=== PATIENT | male | born 1975 | race Two or more races ===

== ENCOUNTER → 2016-09-06 | Outpatient (CLI) | payer OTHER ==
--- NOTE | ~2016-09-06 | CR181 ---
[facility] A Service of [facility] RADIOLOGY TEXT RESULTS PATIENT: ANN-MARIE ROGEL LOCATION: [facility] : 71 UNIT #: [id number] AGE: [address]: ALISSON JOY MD SEX: M ORDER DR: [id number] [facility] [address] [place], [place] [address] [id number] O MR#: [id number] Acc #: [id number] NAME: ANN-MARIE ROGEL : 1975 SEX: M STUDY DATE/TIME: 09/06/2016 17:24 UNIT: [facility] ROOM: STUDY DESCRIPTION: CR Lumbar Spine 2 or 3 Views Attending Physician: Alisson Joy M.D. Referring Physician: Alisson Joy M.D. Ordering Physician: Alisson Joy M.D. Primary Care Physician: Alisson Joy M.D. MEDICAL IMAGING REPORT This report is preliminary unless electronic signature is present EXAM Lumbar spine, 09/06 at 17:24. INDICATION Low back pain for the last 6 months. No trauma. FINDINGS Three views of the lumbar spine were obtained. No fracture or malalignment is seen. Vertebral body heights and disc spaces are normal. IMPRESSION Normal lumbar spine. Dictated by... Jeromy Jessica Jr., M.D. THIS IS AN ELECTRONICALLY VERIFIED REPORT Jeromy Jessica Jr., M.D. at 09/07/2016 6:08 AM EDEN/joaquín TD: 09/06/2016 22:52 JOB #: [id number] MEDICAL IMAGING REPORT Page 1 of 1 COPY
== END | disposition home or self-care (01) ==
LOC: CRAD 17:00
DX: M54.5 Low back pain (principal)
CPT/HCPCS: 72100